=== PATIENT | female | born 1945 | race Caucasian/White ===

== ENCOUNTER 2016-06-03 16:01 | Emergency (ER) | payer OTHER ==
[~2016-06-03] VITALS: Ht 165.1 cm; Wt 61.2 kg
[2016-06-03 16:01] VITALS: BP 134/55; PULSE 74; RESP 19; TEMP 97.6; O2SAT 99
--- NOTE | 2016-06-03 16:01 | NUR ---
Pt report received from LIZA Eugene. Pt c/o Left sided chest pain that radiates to LUQ abdomen while at [facility]. Pt states that pain has been ongoing x 1 day. Denies N/V or SOB.
--- NOTE | 2016-06-03 16:01 | NUR ---
Patient to ER bed 4 to gown for evaluation. Side rails up. Report given to LIZA BARKER.
--- NOTE | 2016-06-03 16:10 | NUR ---
Dr. Li at bedside to assess pt.
[2016-06-03] MEDS ORDERED: ONDANSETRON 4 MG ODT TAB PO ONE (16:45)
[2016-06-03] MEDS ORDERED: HYDROcodone/ACETAMIN 10-325 MG TAB PO ONE (16:45)
[2016-06-03 16:48] LABS: BASOPHILS % (AUTO) 0.4 % (0.0-2.0); EOSINOPHILS # (AUTO) 0.1 K/uL (0.0-0.4); HEMATOCRIT 37.1 % (36-48); HEMOGLOBIN 12.7 g/dL (12.0-16.0); LYMPHOCYTES # (AUTO) 2.4 K/uL (1.0-5.5); LYMPHOCYTES % (AUTO) 39.4 % (20.5-51.5); MEAN CORPUSCULAR HEMOGLOBIN 33 pg (27-31); MEAN CORPUSCULAR HGB CONC 34 % (32-36); MEAN CORPUSCULAR VOLUME 95 fL (79.0-98.0); MONOCYTES # (AUTO) 0.4 K/uL (0.0-1.0); MONOCYTES % (AUTO) 7.3 % (1.7-9.3); NEUTROPHILS # (AUTO) 3.2 K/uL (1.8-7.7); NEUTROPHILS % (AUTO) 51.9 % (40.0-70.0); PLATELET COUNT (AUTO) 206 K/uL (130-430); RED CELL DISTRIBUTION WIDTH 12.8 % (9.0-15.0); WHITE BLOOD COUNT (AUTO) 6.1 K/uL (4.8-10.8)
[2016-06-03 16:57] LABS: ANION GAP 12 (5-15); CALCIUM 9.4 mg/dL (8.4-11.0); CHLORIDE 104 mmol/L (98-107); CREATININE 1.21 mg/dL (0.55-1.30); GLUCOSE 104 mg/dL (70-99); POTASSIUM 4.1 mmol/L (3.5-5.1); SODIUM SERUM 140 mmol/L (136-145); UREA NITROGEN, BLOOD 26 mg/dL (8-21)
[2016-06-03 16:59] LABS: INR 1.1 (0.8-1.2); PROTHROMBIN TIME 11.6 SECS (9.5-12.5)
--- NOTE | 2016-06-03 16:59 | NUR ---
medicated for 6/10 abd pain with norco per Dr. Li's orders
[2016-06-03 17:02] LABS: GFR AFRICAN AMERICAN 57 mL/min (>90)
[2016-06-03 17:05] LABS: ALANINE AMINOTRANSFERASE 23 U/L (12-78); ALBUMIN 3.7 g/dL (3.4-4.8); AMYLASE 94 U/L (0-100); ASPARTATE AMINOTRANSFERASE 14 U/L (10-37); CREATINE KINASE, TOTAL 72 U/L (26-192); LIPASE 133 U/L (73-393); TOTAL BILIRUBIN 0.2 mg/dL (0.0-1.0); TOTAL PROTEIN, SERUM 7.1 g/dL (6.4-8.3)
--- NOTE | 2016-06-03 17:15 | NUR ---
Pt to radiology via stretcher.
--- NOTE | 2016-06-03 17:30 | NUR ---
Pt returns from radiology. No needs verbalized at this time.
--- NOTE | 2016-06-03 18:30 | NUR ---
No needs verbalized at this time. Family member at bedside.
[2016-06-03 19:30] VITALS: BP 131/77; PULSE 74; RESP 17; TEMP 97.6; O2SAT 99
--- NOTE | 2016-06-03 19:30 | NUR ---
Patient given written and verbal discharge instructions and verbalizes understanding. ER MD DR. MARTINEZ discussed with patient the results and treatment provided. Patient in stable condition. ID arm band removed. IV catheter removed intact and dressing applied, no active bleeding. Rx of NORCO PRILOSEC given. Patient educated on pain management and to follow up with PMD. Pain Scale 0/10 Opportunity for questions provided and answered.
== END 2016-06-03 19:30 | disposition home or self-care (01) ==
LOC: SED 16:01
DX: R07.9 Chest pain, unspecified (principal); R10.12 Left upper quadrant pain; R10.11 Right upper quadrant pain; I10 Essential (primary) hypertension
CPT/HCPCS: 36415; 71010; 74176; 80053; 82150; 82550; 83690; 83880; 84484; 85025; 85610; 85730; 93005; 99285; Q0162

== ENCOUNTER 2018-11-22 09:09 | Inpatient (IN) | payer OTHER ==
[~2018-11-22] VITALS: Ht 165.1 cm; Wt 68.0 kg
[2018-11-22 09:09] VITALS: BP_SYST 157
--- NOTE | 2018-11-22 09:09 | NUR ---
BROUGHT IN BY [facility] AND PLACED IN BED #3, TRIAGED. REPORT GIVEN TO ANGIE. NEIGHBOR IS AT BEDSIDE, PT LIVES ALONE WITH CHILDREN OUT OF STATE.
--- NOTE | 2018-11-22 09:10 | NUR ---
Patient presented to ER with C/O leathargy, confusion, and decreased appetite. Patient arrived BLS, neighbor called 911. Patient A&Ox4, slow to respond but appropriate, denies pain, denies N/V/D. Patient states she lives alone, ambulatory, continent, has decreased appetite and weakness since Tuesday. Patient states she had a procedure done Tuesday with Urologist office but patient is unable to recall name of procedure.
--- NOTE | 2018-11-22 09:30 | NUR ---
ER Dr. Velasquez at bedside examining patient.
[2018-11-22] MEDS ORDERED: NACL 0.9% 1,000 ML IV ONE (09:45)
[2018-11-22 10:10] LABS: BASOPHILS # (AUTO) 0.1 K/uL (0.0-0.2); LYMPHOCYTES % (AUTO) 11.2 % (20.5-51.5); MEAN CORPUSCULAR HEMOGLOBIN 33 pg (27-31); MEAN CORPUSCULAR HGB CONC 34 % (32-36); MEAN CORPUSCULAR VOLUME 96 fL (79.0-98.0); MONOCYTES # (AUTO) 0.5 K/uL (0.0-1.0); MONOCYTES % (AUTO) 5.1 % (1.7-9.3); NEUTROPHILS # (AUTO) 7.6 K/uL (1.8-7.7); NEUTROPHILS % (AUTO) 82.7 % (40.0-70.0); PLATELET COUNT (AUTO) 238 K/uL (130-430); RED BLOOD CELL COUNT(AUTO) 3.67 MIL/uL (4.2-6.2); RED CELL DISTRIBUTION WIDTH 14.9 % (9.0-15.0); WHITE BLOOD COUNT (AUTO) 9.2 K/uL (4.8-10.8)
[2018-11-22 10:23] LABS: ANION GAP 8 (5-15); CALCIUM 10.1 mg/dL (8.4-11.0); CHLORIDE 96 mmol/L (98-107); CREATININE 0.79 mg/dL (0.55-1.30); GLUCOSE 142 mg/dL (70-99); POTASSIUM 3.9 mmol/L (3.5-5.1); SODIUM SERUM 133 mmol/L (136-145); UREA NITROGEN, BLOOD 36 mg/dL (8-21)
--- NOTE | 2018-11-22 10:25 | NUR ---
# 20 gauge angiocath placed to LEFT AC. Use of asceptic technique. Opsite placed over site. Blood return noted. Flushed with 10 cc of normal saline. No evidence of infiltration noted. Patient tolerated well.
[2018-11-22 10:28] LABS: INR 1.1 (0.8-1.2); PROTHROMBIN TIME 10.9 SECS (9.5-12.5)
[2018-11-22 10:41] LABS: ALANINE AMINOTRANSFERASE 127 U/L (12-78); ALBUMIN 2.3 g/dL (3.4-4.8); ASPARTATE AMINOTRANSFERASE 265 U/L (10-37); TOTAL BILIRUBIN 0.4 mg/dL (0.0-1.0); VALPROIC ACID 4 ug/mL (50-100)
--- NOTE | 2018-11-22 11:00 | NUR ---
# 14 FR In and Out catheter with use of sterile technique. Immediate return of 60 ml urine noted. Urine sample collected and sent to lab. Pt tolerated procedure well. Patient unable to toilet self.
[2018-11-22 11:21] LABS: BILIRUBIN,URINE NEGATIVE (NEGATIVE); BLOOD, URINE 1+ (NEGATIVE); CLARITY/URINE CLEAR (CLEAR); COLOR,URINE YELLOW (YELLOW); GLUCOSE,URINE NEGATIVE (NEGATIVE); KETONES,URINE NEGATIVE (NEGATIVE); LEUKOCYTE ESTERASE ,URINE NEGATIVE (NEGATIVE); NITRITE, URINE NEGATIVE (NEGATIVE); PROTEIN URINE 2+ (NEGATIVE)
--- NOTE | 2018-11-22 11:28 | NUR ---
Report to Benji DE JESUS
[2018-11-22] MEDS ORDERED: BIOT10004 PO (11:32)
[2018-11-22] MEDS ORDERED: MV-M1TAB19 PO (11:32)
[2018-11-22] MEDS ORDERED: OMEG-95 PO (11:32)
[2018-11-22] MEDS ORDERED: ASA81 PO (11:32)
[2018-11-22] MEDS ORDERED: GABA300T26 PO (11:32)
[2018-11-22] MEDS ORDERED: LAMO150T2 PO (11:32)
[2018-11-22] MEDS ORDERED: LOSA100T3 PO (11:32)
[2018-11-22] MEDS ORDERED: DEPAK250 PO (11:32)
[2018-11-22] MEDS ORDERED: FENO160 PO (11:32)
[2018-11-22] MEDS ORDERED: SIMV80TA88 PO (11:32)
[2018-11-22] MEDS ORDERED: PRO40 PO (11:32)
[2018-11-22] MEDS ORDERED: cefTRIAXone 1 GM in D5W 50 ML IV ONE (11:45)
--- NOTE | 2018-11-22 11:47 | NUR ---
Medication reconciliation completed with information provided by list of medications provided by pt. Any prior medication reconciliation on file was reviewed and corrected.
[2018-11-22 11:55] LABS: BACTERIA,URINE FEW /HPF (None Seen); URINE AMORPHOUS URATE 2+ /HPF (None Seen); WBC,URINE NONE SEEN /HPF (0-3)
[2018-11-22] MEDS ORDERED: cefTRIAXone 1 GM VIAL ONE (12:01)
--- NOTE | 2018-11-22 12:02 | NUR ---
Rocephin 1g /50mL D5W IVPB @ 100mL/hr initiated. PT tolerated well. No adverse reactions noted.
--- NOTE | 2018-11-22 12:25 | NUR ---
Patient to ER bed [address] [facility]
[2018-11-22] MEDS ORDERED: KCL 20 mEq in D5/0.45NS 1000mL 1,000 ML IV ONE (13:30)
--- NOTE | 2018-11-22 13:37 | NUR ---
Orders from Dr. Heck.
--- NOTE | 2018-11-22 13:50 | NUR ---
Patient will be admitted to care of dr. Heck. Admitted to Tele 130A unit. Will go to room 130A . Belongings list completed. Summary report printed. Report will be given at bedside. Transfer to Tele 130A via ACLS protocol. Licensed nurse Demar RN& Roberto EMT. IV present no signs or symptoms of infiltration.
[2018-11-22] MEDS ORDERED: cefTRIAXone 1 GM IVPB PREMIX 50 ML IV ONE (13:58)
--- NOTE | 2018-11-22 14:00 | NUR ---
ADMISSION NOTE Received patient from ER via [facility], received report from Jenifer DE JESUS. Patient admitted with diagnosis of PNA, Dehydration. Patient oriented to hospital routine, call light, toileting and safety-patient verbalized understanding.
--- NOTE | 2018-11-22 14:13 | NUR ---
INITIAL NOTES: SEEN PATIENT IN THE ROOM. AWAKE,ALERT AND ORIENTED X4. PATIENT ORIENTED TO CALL LIGHT,HOSPITAL ROUTINES AND PLAN OF CARE. SAFETY MEASURES RENDERED. PLACED ON TELEMETRY. CONDITION GUARDED.
[2018-11-22 14:42] VITALS: BP_SYST 135
--- NOTE | 2018-11-22 16:25 | NUR ---
RN ROUNDS: PATIENT FAST ASLEEP DURING ROUNDS. STABLE.
--- NOTE | 2018-11-22 18:17 | NUR ---
END OF SHIFT: PRACTICE GUIDELINES MET THROUGH OUT SHIFT. CALL LIGHT WITH IN REACH. BED LOCKED AT LOWEST POSITION. BED ALARM ON. CONDITION GUARDED.
[2018-11-22] MEDS ORDERED: LevALBUTEROL HCL 1.25 MG/0.5 ML *CONC.* VIAL.NEB (XOPENEX CONC.) INH PRN (19:00)
[2018-11-22] MEDS ORDERED: ACETAMINOPHEN 325 MG TABLET PO PRN (19:00)
--- NOTE | 2018-11-22 19:30 | NUR ---
INITIAL NOTES RECEIVED HANDOFF REPORT FROM OFFGOING NURSE AT THE BEDSIDE. PATIENT IS CURRENTLY USING THE BSC. NO SOB, NO ACUTE DISTRESS, NO COMPLAINTS OF PAIN AT THIS TIME. IV SITE INTACT, CURRENTLY INFUSING IVF PER MD ORDER, SEE EMAR. CALL LIGHT IS WITHIN REACH. ENCOURAGED PATIENT TO CALL FOR ASSISTANCE. WILL CONTINUE WITH PLAN OF CARE.
[2018-11-22 20:00] VITALS: BP_SYST 131
[2018-11-22] MEDS: cefTRIAXone 1 GM in D5W 50 ML IV SCH (20:08)
[2018-11-22] MEDS: LamoTRIgine 100 MG TABLET PO SCH (20:10)
[2018-11-22] MEDS: MULTIVITS,CA,MINERALS/IRON/FA 1 TABLET PO SCH (20:10)
[2018-11-22] MEDS: VALPROIC ACID 250 MG CAPSULE (DEPAKENE) PO SCH (20:12)
--- NOTE | 2018-11-22 20:30 | NUR ---
PATIENT REFUSES MEDICATION VALPROIC ACID. PATIENT STATES THAT SHE HAS BEEN ON SEIZURE MEDICATIONS FOR 20 YEARS, BUT SHE NEVER TAKES VALPROIC ACID AND LAMICTRAL TOGETHER.
[2018-11-22] MEDS ORDERED: GABAPENTIN ENACARBIL 300 MG PO SCH (21:00)
[2018-11-22] MEDS: AZITHROMYCIN 500 MG in NS 250 ML IV SCH (21:13)
[2018-11-22 22:30] VITALS: BP_SYST 131
--- NOTE | 2018-11-22 22:30 | NUR ---
PATIENT'S IV SITE NO LONGER INTACT, LEAKING FLUID FROM THE DRESSING. IV SITE REMOVED, CATHETER INTACT. NEW IV SITE PLACED ON THE RIGHT HAND 322G. SUCCESSFUL AFTER 1 ATTEMPT. RESUMED CURRENT IVF AT 70ML/HR, SEE EMAR. WILL OBSERVE FOR ANY SIGNS OF INFILTRATION. PATIENT TOLERATED PROCEDURE WELL.
--- NOTE | 2018-11-23 00:30 | NUR ---
PATIENT RESTING COMFORTABLY IN BED, EYES CLOSED. BREATHING EVEN AND UNLABORED WITH VISIBLE CHEST RISE AND FALL NOTED. NO SOB, NO ACUTE DISTRESS, NO SIGNS OF PAIN OR FACIAL GRIMACING NOTED. BED IS LOCKED, IN THE LOWEST POSITION, 2X SIDE RAILS UP, BED ALARM IS ON. CALL LIGHT IS WITHIN REACH.
[2018-11-23] MEDS: LevALBUTEROL HCL 1.25 MG/0.5 ML *CONC.* VIAL.NEB (XOPENEX CONC.) INH SCH ×4 (01:14→23:08)
[2018-11-23 01:47] VITALS: BP_SYST 117
--- NOTE | 2018-11-23 02:35 | NUR ---
PATIENT RESTING COMFORTABLY IN BED, EYES CLOSED. NOTED VISIBLE CHEST RISE AND FALL. NO SOB, NO ACUTE DISTRESS, NO SIGNS OF PAIN OR FACIAL GRIMACING NOTED. IV SITE INTACT, CURRENTLY INFUSING IVF PER MD ORDER, SEE EMAR FOR DETAILS. BED IS LOCKED, IN THE LOWEST POSITION, 3X SIDE RAILS UP, BED ALARM IS ON. CALL LIGHT IS WITHIN REACH.
--- NOTE | 2018-11-23 04:30 | NUR ---
ASSISTED PATIENT TO THE BSC. PATIENT HAS TREMORS, AND NEEDS ASSISTANCE FROM BED TO BSC. PATIENT VOIDED URINE. NOW RESTING COMFORTABLY IN BED. NO SOB, NO ACUTE DISTRESS, NO COMPLAINTS OF PAIN AT THIS TIME. BED IS LOCKED, IN THE LOWEST POSITION, 2X SIDE RAILS UP, BED ALARM IS ON. CALL LIGHT WITHIN REACH. ENCOURAGED PATIENT TO CALL FOR ASSISTANCE.
--- NOTE | 2018-11-23 06:36 | NUR ---
CLOSING NOTES PATIENT RESTING COMFORTABLY IN BED, EYES CLOSED. BREATHING EVEN AND UNLABORED WITH VISIBLE CHEST RISE AND FALL NOTED. NO SOB, NO ACUTE DISTRESS, NO SIGNS OF PAIN OR FACIAL GRIMACING NOTED. IV SITE INTACT, DRESSING CLEAN AND DRY, INFUSING IVF PER MD ORDER, SEE EMAR. BED IS LOCKED, IN THE LOWEST POSITION, 3X SIDE RAILS UP, BED ALARM IS ON. CALL LIGHT IS WITHIN REACH. FALL AND SAFETY PRECAUTIONS MAINTAINED. ALL NEEDS MET DURING THIS SHIFT. WILL ENDORSE CARE TO ONCOMING DAYSHIFT NURSE.
[2018-11-23 07:47] LABS: ANION GAP 5 (5-15); CALCIUM 9.3 mg/dL (8.4-11.0); CHLORIDE 102 mmol/L (98-107); CREATININE 0.66 mg/dL (0.55-1.30); GLUCOSE 152 mg/dL (70-99); PHOSPHORUS 3.6 mg/dL (2.7-4.5); POTASSIUM 3.9 mmol/L (3.5-5.1); SODIUM SERUM 135 mmol/L (136-145); UREA NITROGEN, BLOOD 18 mg/dL (8-21)
[2018-11-23 07:51] LABS: BASOPHILS % (AUTO) 0.3 % (0.0-2.0); EOSINOPHILS % (AUTO) 0.3 % (0.0-4.0); HEMATOCRIT 32.1 % (36-48); HEMOGLOBIN 10.9 g/dL (12.0-16.0); LYMPHOCYTES # (AUTO) 1.2 K/uL (1.0-5.5); LYMPHOCYTES % (AUTO) 19.9 % (20.5-51.5); MEAN CORPUSCULAR HEMOGLOBIN 33 pg (27-31); MEAN CORPUSCULAR HGB CONC 34 % (32-36); MEAN CORPUSCULAR VOLUME 96 fL (79.0-98.0); MONOCYTES # (AUTO) 0.5 K/uL (0.0-1.0); MONOCYTES % (AUTO) 8.3 % (1.7-9.3); NEUTROPHILS # (AUTO) 4.1 K/uL (1.8-7.7); NEUTROPHILS % (AUTO) 71.2 % (40.0-70.0); PLATELET COUNT (AUTO) 239 K/uL (130-430); RED BLOOD CELL COUNT(AUTO) 3.35 MIL/uL (4.2-6.2); WHITE BLOOD COUNT (AUTO) 5.8 K/uL (4.8-10.8)
--- NOTE | 2018-11-23 08:00 | NUR ---
initial notes rec patient asleep but arousable to stimuli. ivf infusing well on the r hand. no infiltration noted.resp easy and unlabored. bed to the lowest position and side rails up and locked. call light within reached.
[2018-11-23] MEDS ORDERED: NON-FORMULARY MEDICATION (Biotin 1,000 MCG) PO SCH (09:00)
[2018-11-23 12:23] VITALS: BP_SYST 119
[2018-11-23] MEDS: ASPIRIN 81 MG TAB.CHEW PO SCH (13:32)
[2018-11-23] MEDS: OMEGA-3/DHA/EPA/FISH OIL 1 GM CAPSULE PO SCH (13:32)
[2018-11-23] MEDS: MULTIVITS,CA,MINERALS/IRON/FA 1 TABLET PO SCH ×2 (13:33→21:33)
[2018-11-23] MEDS: LamoTRIgine 100 MG TABLET PO SCH ×2 (13:33→21:33)
[2018-11-23] MEDS: VALPROIC ACID 250 MG CAPSULE (DEPAKENE) PO SCH ×2 (13:33→21:33)
[2018-11-23] MEDS: LOSARTAN POTASSIUM 50 MG TABLET (COZAAR) PO SCH (13:34)
[2018-11-23] MEDS: ENOXAPARIN SODIUM 40 MG/0.4 ML SYRINGE SUBCUT SCH (13:42)
--- NOTE | 2018-11-23 14:00 | NUR ---
rounds pt had a loose bm, large in amount.pt kept dry and cleaned. assitaed back in bed.
[2018-11-23 16:05] VITALS: BP_SYST 135
--- NOTE | 2018-11-23 16:35 | NUR ---
Dietitian Recommendations * Recommend mechanical soft diet w/ Ensure Enlive BID (ONS provides 700 kcal/day, 40 gm protein/day) SURYA, RD Please refer to Nutrition Assessment for details. Addendum: 11/23/18 at [address] Amended: Links added.
--- NOTE | 2018-11-23 18:40 | NUR ---
closing notes requested to sit at the commode. pt voided. no sob noted. bed to the lowest position and side rails up and locked.. call light within reached. no sob noted.
--- NOTE | 2018-11-23 19:42 | NUR ---
Spoke with Steve from [facility], who stated that he needed clarification for medication Gabapentin Enacarbil, which is used for intermediate and Steve presumed it was ordered in error. Spoke with the patient, and the patient stated that she takes Gabapentin (Neurontin) 100mg Q6h, for a total of 400mg a day. Dr Heck currently making rounds at the nurses station and made aware of the situation, and Dr Heck ordered to change the medication to Neurontin.
[2018-11-23 20:00] VITALS: BP_SYST 150
--- NOTE | 2018-11-23 20:15 | NUR ---
ASSUMPTION OF CARE REPORT RECEIVED FROM ALISSON RN AT THIS TIME. PT RECEIVED IN BED WITH EYES OPEN, AAOX4, AND ABLE TO VERBALIZE NEEDS. VSS, NO S/S OF ACUTE DISTRESS NOTED. PT ON RA. SR ON MONITOR. R HAND 22G TO SL, PATENT AND INTACT. PT DENIES ANY PAIN OR DISCOMFORT AT THIS TIME. HOB ELEVATED BED IN LOWEST POSITION, CALL LIGHT IN REACH. WILL CONTINUE TO MONITOR PT.
--- NOTE | 2018-11-23 21:00 | NUR ---
BEDSIDE COMMODE PT ASSISTED TO BEDSIDE COMMODE AT THIS TIME. PT UNSTEADY ON HER FEET. PT VOIDED 100 CC YELLOW URINE AT THIS TIME. PT ASSISTED TO BED, IN STABLE CONDITION. WILL CONTINUE TO MONITOR PT.
[2018-11-23] MEDS: AZITHROMYCIN 500 MG in NS 250 ML IV SCH (21:33)
[2018-11-23] MEDS: cefTRIAXone 1 GM in D5W 50 ML IV SCH (21:34)
--- NOTE | 2018-11-23 22:04 | NUR ---
Consultation Paged Reason for Consultation: Seizure disorder Was consult called: Y Person who was notified: Samara Consulting Physician: Jewell Ayers Literary Writer Ordering Physician: Dr. Heck
[2018-11-23] MEDS: GABAPENTIN 100 MG CAPSULE PO SCH (23:36)
[2018-11-24] VITALS: BP_SYST 120
--- NOTE | 2018-11-24 04:04 | NUR ---
RN ROUNDS PT RESTING COMFORTABLY IN BED WITH EYES CLOSED. BREATHING IS EVEN AD UNLABORED ON RA. NO S/S OF ACUTE DISTRESS NOTED. WILL CONTINUE TO MONITOR PT.
[2018-11-24] MEDS: PANTOPRAZOLE SODIUM 40 MG TAB PO SCH (06:16)
[2018-11-24] MEDS: GABAPENTIN 100 MG CAPSULE PO SCH ×3 (06:16→17:48)
[2018-11-24] MEDS: LevALBUTEROL HCL 1.25 MG/0.5 ML *CONC.* VIAL.NEB (XOPENEX CONC.) INH SCH ×3 (07:00→23:15)
--- NOTE | 2018-11-24 07:19 | NUR ---
ENDORSEMENT BEDSIDE REPORT GIVEN TO PERCY RN USING SBAR APPROACH. ALL NEEDS MET. PT RESTING COMFORTABLY IN BED. NO S/S OF ACUTE DISTRESS NOTED.
[2018-11-24 08:00] VITALS: BP_SYST 139
--- NOTE | 2018-11-24 08:00 | NUR ---
initial notes rec patient awake alert with ivl on the r hand intact. no infiltration noted. resp easy and unlabored. no sob noted. bed to the lowest position and side rails up and locked. call light within reached. denies pain.
--- NOTE | 2018-11-24 10:00 | NUR ---
rounds social media manager at bedside and talking to the patient. no sob noted. call light within reached.
[2018-11-24] MEDS: LOSARTAN POTASSIUM 50 MG TABLET (COZAAR) PO SCH (10:24)
[2018-11-24] MEDS: ASPIRIN 81 MG TAB.CHEW PO SCH (10:25)
[2018-11-24] MEDS: VALPROIC ACID 250 MG CAPSULE (DEPAKENE) PO SCH ×2 (10:25→21:05)
[2018-11-24] MEDS: MULTIVITS,CA,MINERALS/IRON/FA 1 TABLET PO SCH ×2 (10:25→21:05)
[2018-11-24] MEDS: OMEGA-3/DHA/EPA/FISH OIL 1 GM CAPSULE PO SCH (10:25)
[2018-11-24] MEDS: LamoTRIgine 100 MG TABLET PO SCH ×2 (10:25→21:05)
[2018-11-24] MEDS: ENOXAPARIN SODIUM 40 MG/0.4 ML SYRINGE SUBCUT SCH (10:26)
--- NOTE | 2018-11-24 10:59 | NUR ---
Discharge Planning [employer] met with patient to discuss any Social Service needs and conduct a Discharge Plan Assessment. RICH met with patient at bedside. Patient was admitted with pneumonia. Patient is alert and oriented. Patient has been getting progressively weaker at home. She believes it started with the adjustment of her seizure medication. Two months ago she walked independently. Lately, she has barely been able to get around the home with her FWW. Her friend checks on her daily, but patient lives alone. A PT eval has been ordered but expect patient will need rehab, either acute or at a SNF. Patient stated she has never had home health or been in a SNF and has no preference. She will discuss with Dr Heck further. Patient may qualify for [facility]. A voicemail was placed to Jeff with [facility] to discuss the case. Patient stated she was unsure if she had a DPOA, but her son is on her trust and maybe the DPOA is with that. He knows her wishes not to be kept alive by artificial means on a snf basis. Rehabilitation Teacher/ Case Management/ Discharge Planning will remain available to assist with discharge arrangements. Addendum: 11/24/18 at 1503 by Chula Gage LCSW Jeff with [facility] will meet with patient today to determine if a [facility] application is advisable. She may have a high share of cost. RICH met with patient at bedside again. Patient stated she has [employer] secondary insurance. She did not think she has the insurance card to give the information. Notified Brenda in Admitting. Patient will discuss SNF with Dr Heck. Addendum: 11/24/18 at 1703 by Chula Gage LCSW Gave patient a list of SNFs but patient requests [facility] evaluation. RICH discussed with Dr Heck who may request [facility] evaluation. He wants to have patient seen by the neurologist prior to DC. Jeff provided card, but patient will not do a [facility] application at this time. Patient denies alcohol use and stated her elevated liver numbers are related to her prescription medication use.
--- NOTE | 2018-11-24 12:00 | NUR ---
rounds was up by p.t at bedside and hardly tolerated.
[2018-11-24 12:48] VITALS: BP_SYST 134
--- NOTE | 2018-11-24 14:00 | NUR ---
rounds asleep when rounds made. call light within reached.
[2018-11-24 15:45] VITALS: BP_SYST 130
--- NOTE | 2018-11-24 17:51 | NUR ---
rounds meds given and leelee well. no sob noted. pt eating at this time. no nausea noted.
--- NOTE | 2018-11-24 19:35 | NUR ---
ROUNDS PATIENT IN BED, WATCHING TV, NOT IN DISTRESS, VITALS STABLE. DENIES ANY PAIN AND DISCOMFORT NOTED. ASSESSMENT DONE AND DOCUMENTED. SEE FLOWSHEET. NEEDS ATTENDED TO. SAFETY AND FALL PRECAUTION MEASURES IN PLACED. BED IN LOW AND LOCKED POSITION. CALL LIGHT PLACED WITHIN REACH.
[2018-11-24 20:00] VITALS: BP_SYST 136
[2018-11-24] MEDS: cefTRIAXone 1 GM in D5W 50 ML IV SCH (21:04)
--- NOTE | 2018-11-24 21:13 | NUR ---
MEDICATIONS DUE MEDICATIONS GIVEN ORDERED, TOLERATED WELL. WILL CONTINUE TO MONITOR.
[2018-11-24] MEDS: AZITHROMYCIN 500 MG in NS 250 ML IV SCH (21:58)
[2018-11-25] VITALS (7 sets, daily range): BP systolic 115–142
--- NOTE | 2018-11-25 00:12 | NUR ---
PATIENT RESTING: Patient resting quietly. No acute distress noted. Vital signs within normal range.
[2018-11-25] MEDS: GABAPENTIN 100 MG CAPSULE PO SCH ×5 (01:41→23:31)
--- NOTE | 2018-11-25 02:13 | NUR ---
ROUNDS PATIENT ASLEEP, RESPIRATIONS EVEN AND UNLABORED, NO SIGNS OF ANY PAIN AND DISCOMFORT NOTED. WILL CONTINUE TO MONITOR.
--- NOTE | 2018-11-25 04:12 | NUR ---
PATIENT RESTING: Patient resting quietly. No acute distress noted. Vital signs within normal range.
[2018-11-25] MEDS: PANTOPRAZOLE SODIUM 40 MG TAB PO SCH (06:01)
--- NOTE | 2018-11-25 06:17 | NUR ---
CLOSING NOTES PATIENT AWAKE, VITALS STABLE, DENIES ANY PAIN AT THIS TIME. ALL NEEDS ATTENDED TO. SAFETY AND FALL PRECAUTION MEASURES IN PLACED. CALL LIGHT PLACED WITHIN REACH.
--- NOTE | 2018-11-25 07:00 | NUR ---
Nutrition Update Jose G Scale 18 noted. Pt admitted for Pneumonia, Dehydration Diet: Mechanical soft BMI: 25 kg/m2 RD to follow per nutrition care standards.
--- NOTE | 2018-11-25 07:20 | NUR ---
AM ROUNDS: PATIENT AWAKE DURING ROUNDS. NO COMPLAINED MADE. CALL LIGHT WITH IN REACH. BED LOCKED AT LOWEST POSITION. CONTINUE TO MONITOR.
[2018-11-25] MEDS: LevALBUTEROL HCL 1.25 MG/0.5 ML *CONC.* VIAL.NEB (XOPENEX CONC.) INH SCH ×3 (07:42→23:06)
[2018-11-25] MEDS: LamoTRIgine 100 MG TABLET PO SCH ×2 (08:30→20:24)
[2018-11-25] MEDS: OMEGA-3/DHA/EPA/FISH OIL 1 GM CAPSULE PO SCH (08:30)
--- NOTE | 2018-11-25 08:30 | NUR ---
Med Pass: Took her meds well with no problem.
[2018-11-25] MEDS: LOSARTAN POTASSIUM 50 MG TABLET (COZAAR) PO SCH (08:32)
[2018-11-25] MEDS: MULTIVITS,CA,MINERALS/IRON/FA 1 TABLET PO SCH ×2 (08:32→20:23)
[2018-11-25] MEDS: VALPROIC ACID 250 MG CAPSULE (DEPAKENE) PO SCH ×2 (08:32→20:23)
[2018-11-25] MEDS: ASPIRIN 81 MG TAB.CHEW PO SCH (08:32)
[2018-11-25] MEDS: ENOXAPARIN SODIUM 40 MG/0.4 ML SYRINGE SUBCUT SCH (08:36)
--- NOTE | 2018-11-25 10:30 | NUR ---
RN ROUNDS: RESTING. STABLE.
--- NOTE | 2018-11-25 12:06 | NUR ---
RN ROUNDS: Patient having lunch. No distress.Call light with in reach. Bed locked at lowest position.
--- NOTE | 2018-11-25 14:25 | NUR ---
RN ROUNDS: RESTING. NO ACUTE DISTRESS.
--- NOTE | 2018-11-25 16:18 | NUR ---
RN ROUNDS: WATCHING TV. NO NEEDS THIS TIME.
--- NOTE | 2018-11-25 18:30 | NUR ---
CLOSING NOTES: PATIENT HAVING DINNER. NO ACUTE DISTRESS. PRACTICE GUIDELINES MET THROUGHOUT SHIFT. CALL LIGHT WITH IN REACH. BED LOCKED AT LOWEST POSITION.
--- NOTE | 2018-11-25 19:35 | NUR ---
ROUNDS PATIENT IN BED, WATCHING TV, VITALS STABLE. DENIES ANY PAIN AND DISCOMFORT AT THIS TIME. ASSESSMENT DONE AND DOCUMENTED. SEE FLOWSHEET. NEEDS ATTENDED TO. SAFETY AND FALL PRECAUTION MEASURES IN PLACED. CALL LIGHT PLACED WITHIN REACH.
[2018-11-25] MEDS: cefTRIAXone 1 GM in D5W 50 ML IV SCH (20:25)
[2018-11-25] MEDS: AZITHROMYCIN 500 MG in NS 250 ML IV SCH (21:01)
--- NOTE | 2018-11-25 21:13 | NUR ---
MEDICATION DUE MEDICATIONS GIVEN ORDERED, TOLERATED WELL. WILL CONTINUE TO MONITOR.
--- NOTE | 2018-11-26 00:13 | NUR ---
PATIENT RESTING: Patient resting quietly. No acute distress noted. Vital signs within normal range.
[2018-11-26 00:47] VITALS: BP_SYST 145
--- NOTE | 2018-11-26 02:15 | NUR ---
ROUNDS PATIENT ASLEEP, RESPIRATIONS EVEN AND UNLABORED, NO SIGNS OF ANY PAIN AND DISCOMFORT NOTED. WILL CONTINUE TO MONITOR.
--- NOTE | 2018-11-26 04:12 | NUR ---
ROUNDS PATIENT ASLEEP, NO SOB NOR PAIN AND DISCOMFORT NOTED, WILL CONTINUE TO MONITOR.
--- NOTE | 2018-11-26 05:43 | NUR ---
CLOSING NOTES PATIENT AWAKE, VITALS STABLE, DENIES ANY PAIN AT THIS TIME. ALL NEEDS ATTENDED TO. SAFETY MEASURES MAINTAINED. CALL LIGHT PLACED WITHIN REACH.
[2018-11-26] MEDS: PANTOPRAZOLE SODIUM 40 MG TAB PO SCH (06:05)
[2018-11-26] MEDS: GABAPENTIN 100 MG CAPSULE PO SCH ×4 (06:05→23:55)
[2018-11-26] MEDS: LevALBUTEROL HCL 1.25 MG/0.5 ML *CONC.* VIAL.NEB (XOPENEX CONC.) INH SCH ×3 (07:23→23:34)
--- NOTE | 2018-11-26 07:25 | NUR ---
AM ROUNDS: RECEIVED PATIENT IN THE ROOM,AWAKE,ALERT AND ORIENTED X4. NO ACUTE DISTRESS. CALL LIGHT WITH IN REACH. BED LOCKED AT LOWEST POSITION. CONDITIONS GUARDED.
[2018-11-26 07:40] VITALS: BP_SYST 136
[2018-11-26] MEDS: LamoTRIgine 100 MG TABLET PO SCH ×2 (08:14→20:22)
[2018-11-26] MEDS: VALPROIC ACID 250 MG CAPSULE (DEPAKENE) PO SCH ×2 (08:15→20:21)
[2018-11-26] MEDS: ASPIRIN 81 MG TAB.CHEW PO SCH (08:15)
[2018-11-26] MEDS: LOSARTAN POTASSIUM 50 MG TABLET (COZAAR) PO SCH (08:15)
[2018-11-26] MEDS: MULTIVITS,CA,MINERALS/IRON/FA 1 TABLET PO SCH ×2 (08:15→20:22)
[2018-11-26] MEDS: OMEGA-3/DHA/EPA/FISH OIL 1 GM CAPSULE PO SCH (08:26)
[2018-11-26] MEDS: ENOXAPARIN SODIUM 40 MG/0.4 ML SYRINGE SUBCUT SCH (08:27)
--- NOTE | 2018-11-26 09:22 | NUR ---
DC planning: I reviewed dc planning notes entered by social services specialist (see social services specialist EMR notes)-Per notes, pt was offered SNF list but requested acute rehab [facility]--per notes, Dr. Heck requested neuro consult (Dr. Ruiz consulted 11/25/18)--EEG ordered/completed per charger operator helper Josie--PT notes 11/25 indicate pt ambulating 15ft w/FWW-c/o dizziness--I requested nurse Josie to review info w/Dr. Heck to see if he is ordering [facility] eval--Nurse Isabel also updated--ARISTEO RN
--- NOTE | 2018-11-26 10:00 | NUR ---
KEIRA planning: Rec'd order for [facility]: I called [facility] at [phone]--s/w Keli (admissions liaison today)--She requested I fax referral packet to fax#[phone]--Keli will f/u for acute rehab evaluation--Transfer packet will be taken to nursing station- LIZA
--- NOTE | 2018-11-26 10:20 | NUR ---
RN ROUNDS: RESTING.STABLE.
[2018-11-26 11:18] VITALS: BP_SYST 134
--- NOTE | 2018-11-26 11:59 | NUR ---
Case mgt: Transfer packet at nursing station--Nurse Isabel indicates Keli from [facility] came to see pt and accepted pt per Isabel--I indicated to f/u with Dr. Heck for transfer order and nurse can call Keli at [facility] [phone] for a bed--ARISTEO DE JESUS
--- NOTE | 2018-11-26 12:01 | NUR ---
BSC: PATIENT ON BSC,WITH RECRUITER SPECIALIST'S SUPERVISION. NO PROBLEM.
--- NOTE | 2018-11-26 14:30 | NUR ---
DC TELE: DOWNGRADE PATIENT TO MEDICAL SURGICAL UNIT.
--- NOTE | 2018-11-26 14:40 | NUR ---
BSC: PATIENT ON BSC.SELF CARE RENDERED BY THE PATIENT WITH NURSING SUPERVISION.BACK TO BED IN STABLE CONDITION.
[2018-11-26 15:08] VITALS: BP_SYST 144
--- NOTE | 2018-11-26 16:10 | NUR ---
RN NOTES: WATCHING TV. NOT IN ANY DISTRESS. CALL LIGHT WITH IN REACH. BED LOCKED AT LOWEST POSITION.CONTINUE TO MONITOR.
--- NOTE | 2018-11-26 17:59 | NUR ---
RN NOTES: DR IVERSON IS AWARE THAT PATIENT IS ACCEPTED FROM [facility] BUT HE WANTS EEG RESULTS AND NEURO CLEARANCE BEFORE TRANSFERRING PATIENT TO SNF.
--- NOTE | 2018-11-26 18:29 | NUR ---
CLOSING NOTES: PATIENT ATE LITTLE DURING DINNER,WITH LESS APPETITE. CALL LIGHT WITH IN REACH. BED LOCKED AT LOWEST POSITION. NO NEEDS THIS TIME.
--- NOTE | 2018-11-26 19:35 | NUR ---
Rounds Patient resting comfortably in bed at this time, vitals stable, denies any pain and discomfort at this time. Shift assessment done and documented. IV site patent on the right hand g. 20, saline lock with no signs of infiltration noted. Patient on seizure precaution with seizure pads on at siderails. Needs attended to. Safety and fall measures also in placed. Bed alarm on. Call light placed within reach.
[2018-11-26] MEDS: cefTRIAXone 1 GM in D5W 50 ML IV SCH (20:21)
--- NOTE | 2018-11-26 21:40 | NUR ---
NOTES Gave report to Daniel DE JESUS for continuation of patient care. Patient awake, vitals stable and denies any pain and discomfort at this time.
--- NOTE | 2018-11-26 21:45 | NUR ---
TRANSFER OF CARE Bedside report received from LIZA King. Patient received lying in bed, awake watching TV, AOx4, no s/s of acute distress noted. Breathing even and unlabored. IVF infusing well. Seizure pads attached to side rails. Call light with patient. Will continue to monitor.
[2018-11-26] MEDS: AZITHROMYCIN 500 MG in NS 250 ML IV SCH (21:57)
--- NOTE | 2018-11-26 23:45 | NUR ---
ROUNDS Patient in bed, awake, watching TV. No signs of discomfort noted. Chest rise and fall even bilaterally. HOB raised. Call light with patient. Will continue to monitor.
--- NOTE | 2018-11-27 00:30 | NUR ---
RN ROUNDS PT RESTING IN BED, IN NO ACUTE DISTRESS. NO S/S OF PAIN OR DISCOMFORT. PT DENIES PAIN AT THIS TIME. BREATHING IS UNLABORED TO ROOM AIR. SCHEDULED MEDICATIONS ADMINISTERED ORDERED. PT TOLERATED WELL. NO OTHER NEEDS AT THIS TIME. SAFETY PRECAUTIONS ARE IN PLACE. WILL CONTINUE POC AND MONITOR PT.
[2018-11-27 00:56] VITALS: BP_SYST 147
--- NOTE | 2018-11-27 01:30 | NUR ---
ASSISTED TO BSC Patient requested to be assisted to bedside LIZA perez assisted. Patient assisted back to bed. Patient tolerated activity well. No s/s of acute distress noted. Breathing even and unlabored. Call light with patient. Bed alarm on. All needs met at this time. will continue to monitor.
--- NOTE | 2018-11-27 03:30 | NUR ---
SNACKS/ROUNDS/BSC Patient assisted to BSC to void, and back to bed. Patient has requested snacks, provided by RN. No signs of acute distress observed. Call light within reach, bed at lowest position, and bed alarm on. Patient instructed to use call light when needing assistance, patient verbalized understanding, and demonstrated back proper use. Will continue to monitor.
[2018-11-27] MEDS: GABAPENTIN 100 MG CAPSULE PO SCH ×3 (06:07→17:46)
[2018-11-27] MEDS: PANTOPRAZOLE SODIUM 40 MG TAB PO SCH (06:07)
--- NOTE | 2018-11-27 06:52 | NUR ---
CLOSING NOTES Patient in bed resting at this time, eyes closed, appears to be asleep. No s/s of acute distress noted. Breathing even and unlabored. IV site patent, no signs of infiltration or infection noted. HOB raised. All needs met throughout shift. Fall, safety, and seizure precautions maintained throughout shift. Will continue to monitor until patient care is endorsed to oncoming dayshift nurse.
--- NOTE | 2018-11-27 07:58 | NUR ---
Initial Note: Patient awake, alert, and oriented. Eating breakfast, requested for sausage or martin as meal preference. Safety precaution met, bed side at lowest position. Call light within reach, and encouraged patient to use for assistance.
[2018-11-27 08:05] VITALS: BP_SYST 151
[2018-11-27] MEDS: LevALBUTEROL HCL 1.25 MG/0.5 ML *CONC.* VIAL.NEB (XOPENEX CONC.) INH SCH ×3 (08:33→23:25)
[2018-11-27] MEDS: LOSARTAN POTASSIUM 50 MG TABLET (COZAAR) PO SCH (08:45)
[2018-11-27] MEDS: MULTIVITS,CA,MINERALS/IRON/FA 1 TABLET PO SCH ×2 (08:47→20:38)
[2018-11-27] MEDS: LamoTRIgine 100 MG TABLET PO SCH ×2 (08:47→20:38)
[2018-11-27] MEDS: OMEGA-3/DHA/EPA/FISH OIL 1 GM CAPSULE PO SCH (08:47)
[2018-11-27] MEDS: VALPROIC ACID 250 MG CAPSULE (DEPAKENE) PO SCH ×2 (08:47→20:38)
[2018-11-27] MEDS: ASPIRIN 81 MG TAB.CHEW PO SCH (08:47)
[2018-11-27] MEDS: ENOXAPARIN SODIUM 40 MG/0.4 ML SYRINGE SUBCUT SCH (08:48)
--- NOTE | 2018-11-27 09:30 | NUR ---
Note: PT ambulated with patient. Walked to door and back using walker. Patient tolerated well on room air. No signs of distress or discomfort. Prince any pain, or dizziness at this time. Will continue to monitor. Call light within reach, encouraged to use for assistance.
--- NOTE | 2018-11-27 10:00 | NUR ---
Notes: Patient resting, and lying down in bed. No signs of distress, or unlabored breathing. Call light within reach. Will continue to monitor.
--- NOTE | 2018-11-27 12:00 | NUR ---
Notes: Patient awake, alert, resting in bed. Assisted to BSC, patient had bowel movement with good urine output. Denies any pain, SOB, or discomfort at this time. Safety precautions met, bed in lowest position, call light within reach. Educated patient carpentry professional light use, verbalized understanding and demonstrated back, encouraged patient to use for assistance.
[2018-11-27 12:57] VITALS: BP_SYST 127
--- NOTE | 2018-11-27 14:00 | NUR ---
Notes: Patient awake, and resting in bed. Assisted to BSC. Denies any pain, dizziness or discomfort. No seizures noted at this time. Will continue to monitor.
--- NOTE | 2018-11-27 14:12 | NUR ---
Notes- Paged DR. Ruiz re: clearance for discharge.
--- NOTE | 2018-11-27 14:13 | NUR ---
Notes- Spoke to Dr. Ruiz. stated that he will come and see patient first and to read the EEG that was done yesterday.
--- NOTE | 2018-11-27 16:00 | NUR ---
Notes: Patient awake and resting bed. Assisted to BSC. All needs met at this time, will continue to monitor.
[2018-11-27 16:49] VITALS: BP_SYST 144
--- NOTE | 2018-11-27 17:00 | NUR ---
MD ROUNDS SEEN BY DR. IVERSON AT BEDSIDE, PER MD, TO DISCHARGE PATIENT ONCE CLEARED BY DR. REYNOSO.
--- NOTE | 2018-11-27 17:37 | NUR ---
NOTES- SPOKE TO DR. REYNOSO, PER MD, PT CLEARED TO BE TRANSFER WITH THE SAME MEDICATIONS.
--- NOTE | 2018-11-27 17:56 | NUR ---
Notes- spoke to preethi at [facility], Per Preethi, they don't have her on the list and there is no bed available at this time. Charge nurse aware.
--- NOTE | 2018-11-27 18:35 | NUR ---
Closing Note: Patient in awake, lying down in bed watching TV. No S/S of acute distress noted. All needs met throughout shift. Fall, safety, and seizure precautions maintained throughout shift. Will continue to monitor until patient care is endorsed onto oncoming tax staff accountant nurse.
--- NOTE | 2018-11-27 19:10 | NUR ---
OPENING NOTE RECEIVED ENDORSEMENT REPORT FROM DAY NURSE CONRAD AT BEDSIDE. PT RESTING IN BED, IN NO ACUTE DISTRESS. NO S/S OF PAIN OR DISCOMFORT. PT DENIES PAIN AT THIS TIME. BREATHING IS UNLABORED TO ROOM AIR. IV CLEAN, DRY AND INTACT. IVF INFUSING WELL. EDUCATED PT ON HOW TO USE CALL LIGHT AND ROOM PHONE. PT VERBALIZED UNDERSTANDING. SEIZURE PRECAUTIONS IN PLACE. SAFETY PRECAUTIONS ARE IN PLACE: BED IS LOCKED IN LOWEST POSITION, CALL LIGHT IS WITH PT, SIDE RAILS UP X3, BEDSIDE TABLE WITHIN REACH, BED ALARM ON. WILL CONTINUE POC AND MONITOR PT.
[2018-11-27 20:00] VITALS: BP_SYST 142
--- NOTE | 2018-11-27 20:00 | NUR ---
RN ROUNDS PT RESTING IN BED, IN NO ACUTE DISTRESS. NO S/S OF PAIN OR DISCOMFORT. BREATHING IS UNLABORED TO ROOM AIR. VITAL SIGNS WNL. NO NEEDS AT THIS TIME. SEIZURE PRECAUTIONS IN PLACE. SAFETY PRECAUTIONS ARE IN PLACE. WILL CONTINUE POC AND MONITOR PT.
[2018-11-27] MEDS: cefTRIAXone 1 GM in D5W 50 ML IV SCH (20:37)
--- NOTE | 2018-11-27 20:45 | NUR ---
RN ROUNDS PT RESTING IN BED, IN NO ACUTE DISTRESS. NO S/S OF PAIN OR DISCOMFORT. PT DENIES PAIN AT THIS TIME. BREATHING IS UNLABORED TO ROOM AIR. SCHEDULED MEDICATIONS ADMINISTERED ORDERED. PT TOLERATED WELL. NO OTHER NEEDS AT THIS TIME. SEIZURE PRECAUTIONS IN PLACE. SAFETY PRECAUTIONS ARE IN PLACE. WILL CONTINUE POC AND MONITOR PT.
--- NOTE | 2018-11-27 22:35 | NUR ---
RN ROUNDS PT RESTING IN BED, IN NO ACUTE DISTRESS. NO S/S OF PAIN OR DISCOMFORT. BREATHING IS UNLABORED TO ROOM AIR. NO NEEDS AT THIS TIME. SAFETY PRECAUTIONS ARE IN PLACE. WILL CONTINUE POC AND MONITOR PT.
[2018-11-28] MEDS: GABAPENTIN 100 MG CAPSULE PO SCH ×3 (00:27→12:30)
[2018-11-28 01:39] VITALS: BP_SYST 154
[2018-11-28] MEDS: PANTOPRAZOLE SODIUM 40 MG TAB PO SCH (06:25)
--- NOTE | 2018-11-28 06:33 | NUR ---
CLOSING NOTE PT RESTING IN BED, AAOX4, IN NO ACUTE DISTRESS. PT DENIES PAIN OR DISCOMFORT. BREATHING IS UNLABORED. ALL SCHEDULED MEDICATIONS ADMINISTERED ORDERED. ALL NEEDS MET THROUGHOUT SHIFT. SAFETY PRECAUTIONS ARE IN PLACE. WILL CONTINUE TO MONITOR UNTIL PT CARE IS ENDORSED TO DAY SHIFT NURSE.
[2018-11-28] MEDS: LevALBUTEROL HCL 1.25 MG/0.5 ML *CONC.* VIAL.NEB (XOPENEX CONC.) INH SCH ×2 (07:08→15:00)
--- NOTE | 2018-11-28 07:30 | NUR ---
Routine Patient resting comfortably in bed with no complaint of pain or discomfort. Patient stable.
[2018-11-28 08:05] VITALS: BP_SYST 123
[2018-11-28] MEDS: VALPROIC ACID 250 MG CAPSULE (DEPAKENE) PO SCH (08:43)
[2018-11-28] MEDS: LOSARTAN POTASSIUM 50 MG TABLET (COZAAR) PO SCH (08:43)
[2018-11-28] MEDS: ASPIRIN 81 MG TAB.CHEW PO SCH (08:43)
[2018-11-28] MEDS: LamoTRIgine 100 MG TABLET PO SCH (08:44)
[2018-11-28] MEDS: MULTIVITS,CA,MINERALS/IRON/FA 1 TABLET PO SCH (08:44)
[2018-11-28] MEDS: OMEGA-3/DHA/EPA/FISH OIL 1 GM CAPSULE PO SCH (08:44)
[2018-11-28] MEDS: ENOXAPARIN SODIUM 40 MG/0.4 ML SYRINGE SUBCUT SCH (08:47)
--- NOTE | 2018-11-28 08:49 | NUR ---
Routine Scheduled medications given per order. Patient resting in bed with DENG Coello at bedside. Patient stable at this time.
--- NOTE | 2018-11-28 11:50 | NUR ---
Discharge Planning: [facility] (f [phone] p [phone]) patient accepted to Room 1232A # to report [phone], transfer after 1500. DCP faxed updated progress notes and 24hour. DCP made unit tech aware.
--- NOTE | 2018-11-28 12:09 | NUR ---
Discharge Planning/Insurance Discussed with patient going to [facility] rehab. Patient requested LAMINATION MACHINE OPERATOR phoned her [employer] investment representative, Bg Cabrera, , and obtain supplemental insurance info. LAMINATION MACHINE OPERATOR called. Patient has [employer] Medicare Supplement [id number] . Notified Cee in Admitting.
--- NOTE | 2018-11-28 12:32 | NUR ---
Routine Scheduled medication given per order. Patient eating lunch. No complaint of pain at this time. Patient stable.
[2018-11-28 12:42] VITALS: BP_SYST 123
--- NOTE | 2018-11-28 14:36 | NUR ---
Nutrition F/U RD reviewed pt's current EMR record including diet Hx, physician notes, nursing notes, pertinent labs/meds/procedures, care trends, and care activity. Current Diet Order: regular x1 day Subjective Info: Pt seen resting in bed, tolerating diet well. Pt reported that she usually has a low appetite. Pt requested chocolate pudding and lemon-ruby soda. RD notified [facility] staff. Pt pending transfer to SNF. Current % PO 59% average x11 meals Estimated Energy Expenditure (kcals/day) 4419-9378 kcal/day (25-30 kcal/kg CBW for maintenance) Estimated Protein Required (g/day) 68-82 gm/day (1-1.2 gm/kg CBW for maintenance) Estimated Fluid Required (l/day) 2-2.4 L/day (30-35 ml/kg CBW for dehydration) Problem/Etiology/Signs/Symptoms Suboptimal PO intakes related to possible lack of appetite as evidenced by low PO intake records. *ongoing Expected Outcomes/Goals - Monitor appetite and PO intakes w/ goal of pt meeting at least 75% of estimated nutritional needs, labs trending WNL, normal GI function, and skin integrity/wt maintenance Dietitian Recommendations * Recommend regular diet w/ Ensure Enlive BID (ONS provides 700 kcal/day, 40 gm protein/day) Follow Up Mod Risk: F/U in 3-5 days
--- NOTE | 2018-11-28 14:39 | NUR ---
Dietitian Recommendations * Recommend regular diet w/ Ensure Enlive BID (ONS provides 700 kcal/day, 40 gm protein/day) LP, RD Please refer to Nutrition F/U for details.
--- NOTE | 2018-11-28 15:20 | NUR ---
Called report Called report to Preethi Saunders RN at [facility] [phone]. Patient will go to Room 1202B.
[2018-11-28 15:22] VITALS: BP_SYST 123
--- NOTE | 2018-11-28 15:45 | NUR ---
Discharge Peripheral IV removed intact. Patient tolerated well. All belongings with patient. Patient transferred in stable condition via ambulance to [facility].
== END 2018-11-28 16:14 | DRG 177 ==
LOC: SED 09:09 → STU 13:29 → SMU 11-26 14:21
PROVIDERS: ADMIT Family Medicine; ATTEND Family Medicine
DX: J15.6 Pneumonia due to other Gram-negative bacteria (principal); G93.41 Metabolic encephalopathy; E43 Unspecified severe protein-calorie malnutrition; N17.0 Acute kidney failure with tubular necrosis; E86.0 Dehydration; Z60.2 Problems related to living alone; G40.909 Epilepsy, unspecified, not intractable, without status epilepticus; I10 Essential (primary) hypertension; E78.5 Hyperlipidemia, unspecified; M19.90 Unspecified osteoarthritis, unspecified site; Z79.899 Other long term (current) drug therapy; Z79.82 Long term (current) use of aspirin; Z90.710 Acquired absence of both cervix and uterus; Z68.25 Body mass index [BMI] 25.0-25.9, adult; Z87.828 Personal history of other (healed) physical injury and trauma
CPT/HCPCS: 36415; 70450-TC; 71045; 76700-TC; 80048; 80053; 80164-TC; 81000-TC; 83605; 83735-TC; 84100-TC; 84484; 85025; 85610-TC; 85730-TC; 87040-TC; 87086; 93005; 94640; 94760; 95816; 96361; 96365; 97116-GP; 97530-GP; 99285; G0378; J0456; J0696; J1650; J7050; J7060; J7612

== ENCOUNTER 2023-07-19 20:30 | Emergency (ER) | payer OTHER ==
[~2023-07-19] VITALS: Ht 165.1 cm; Wt 68.0 kg
[2023-07-19 20:30] VITALS: BP_SYST 141; PULSE 90; RESP 18; TEMP 99.2; O2SAT 96
[~2023-07-19 20:30] MED LIST: ASA81 PO; BIOT10004 PO; DEPAK250 PO; FENO160 PO; GABA300T26 PO; LAMO150T2 PO; LOSA-415 PO; MV-M1TAB19 PO; OMEG-95 PO; PRO40 PO; SIMV80TA88 PO
[2023-07-19 21:18] LABS: BASOPHILS # (AUTO) 0.1 K/uL (0.0-0.2); BASOPHILS % (AUTO) 0.8 % (0.0-2.0); EOSINOPHILS # (AUTO) 0.1 K/uL (0.0-0.4); EOSINOPHILS % (AUTO) 0.8 % (0.0-4.0); HEMATOCRIT 38.4 % (36-48); HEMOGLOBIN 12.9 g/dL (12.0-16.0); LYMPHOCYTES # (AUTO) 4.1 K/uL (1.0-5.5); LYMPHOCYTES % (AUTO) 45.1 % (20.5-51.5); MEAN CORPUSCULAR HEMOGLOBIN 32 pg (27-31); MEAN CORPUSCULAR HGB CONC 34 % (32-36); MEAN CORPUSCULAR VOLUME 95 fL (79.0-98.0); MONOCYTES # (AUTO) 0.7 K/uL (0.0-1.0); NEUTROPHILS # (AUTO) 4.1 K/uL (1.8-7.7); NEUTROPHILS % (AUTO) 45.3 % (40.0-70.0); PLATELET COUNT (AUTO) 293 K/uL (130-430); RED BLOOD CELL COUNT(AUTO) 4.02 MIL/uL (4.2-6.2); RED CELL DISTRIBUTION WIDTH 13.9 % (9.0-15.0)
[2023-07-19 21:32] LABS: PROTHROMBIN TIME 10.6 SECS (9.5-12.5)
[2023-07-19 21:40] LABS: ALANINE AMINOTRANSFERASE 25 U/L (12-78); ALBUMIN 3.6 g/dL (3.4-4.8); ANION GAP 5 (5-15); ASPARTATE AMINOTRANSFERASE 11 U/L (10-37); CALCIUM 9.1 mg/dL (8.4-11.0); CARBON DIOXIDE 31 mmol/L (23-29); CHLORIDE 108 mmol/L (98-107); CREATININE 0.85 mg/dL (0.55-1.30); GLUCOSE 116 mg/dL (74-106); POTASSIUM 4.9 mmol/L (3.5-5.1); SODIUM SERUM 144 mmol/L (136-145); TOTAL BILIRUBIN 0.2 mg/dL (0.0-1.0); TOTAL PROTEIN, SERUM 7.2 g/dL (6.4-8.3); UREA NITROGEN, BLOOD 18 mg/dL (8-21)
[2023-07-19 21:43] LABS: AMYLASE 109 U/L (0-100); BILIRUBIN,DIRECT 0.1 mg/dL (0.0-0.3); LIPASE 63 U/L (16-77)
[2023-07-19] MEDS ORDERED: OMEP20CA15 PO (22:04)
[2023-07-19 22:23] VITALS: BP_SYST 141; PULSE 77; RESP 20; TEMP 98.1; O2SAT 95
== END 2023-07-19 22:25 | disposition home or self-care (01) ==
LOC: SED 20:30
DX: K29.70 Gastritis, unspecified, without bleeding (principal); R10.12 Left upper quadrant pain; I10 Essential (primary) hypertension; Z79.899 Other long term (current) drug therapy
CPT/HCPCS: 36415; 71045; 80048; 80076; 82150; 83690; 84484; 85025; 85610; 85730; 93005; 99285

== ENCOUNTER 2023-12-22 06:15 | Emergency (ER) | payer OTHER ==
[~2023-12-22] VITALS: Ht 165.1 cm; Wt 68.0 kg
[~2023-12-22 06:15] MED LIST changes: +OMEP20CA15 PO
[2023-12-22 06:30] VITALS: BP_SYST 127; PULSE 83; RESP 18; TEMP 97.7; O2SAT 95
[2023-12-22] MEDS ORDERED: MORPHINE 4 MG INJ. 4 MG/ML VIAL IVP ONE (06:45)
[2023-12-22] MEDS ORDERED: ONDANSETRON HCL 4 MG/2 ML VIAL IVP ONE (06:45)
[2023-12-22 09:10] VITALS: BP_SYST 111; PULSE 89; RESP 16; O2SAT 99
== END 2023-12-22 09:18 | disposition home or self-care (01) ==
LOC: SED 06:15
DX: S50.01XA Contusion of right elbow, initial encounter (principal); I10 Essential (primary) hypertension; E78.5 Hyperlipidemia, unspecified; Z79.899 Other long term (current) drug therapy; Z79.82 Long term (current) use of aspirin; Z79.2 Long term (current) use of antibiotics; W18.39XA Other fall on same level, initial encounter; Y93.89 Activity, other specified; Y92.89 Other specified places as the place of occurrence of the external cause; Y99.8 Other external cause status
CPT/HCPCS: 73060; 99284